=== PATIENT | female | born 1985 | race Caucasian/White ===

== ENCOUNTER → 2016-10-05 | Outpatient (CLI) | payer MEDICAID ==
--- NOTE | 2016-10-05 10:40 | US ---
October 05, [address] Gomez, Thank you for requesting consultation and a follow up ultrasound for your patient, Mrs. Shalini castillo. As you know, Nevaeh is a 31 year old G 3, P 1011 . Her due date is 12/19/16 by LMP and 12 week ultrasound. Her current gestational age based on this dating is is 29 weeks 2 days. She is seen to day for a follow up of placental location, pyelectasis and growth. Her son had cleft lip/palate. We have not seen any evidence for orofacial clefting in this . She had a reassuring [employer] screen. ULTRASOUND Number of fetuses: 1 Placental location: Posterior and low lying at 1.6 cm from the internal cervical os. Color and spec tral Doppler do not reveal any overlying vessels. presentation: Breech Heart Rate: 147 bpm Cervix: 3.4-3.7 cm viewed transvaginally. There is no shortening or evidence of insufficiency Maximum vertical pocket: 3.4 cm Measurements: Biparietal diameter: 70 mm 28 weeks, 1 days Head circumference: 270 mm 29 weeks, 4 days Abdominal circumference: 272 mm 31 weeks, 2 days Femur length: 57 mm 29 weeks, 5 days Humerus length: 53 mm 31 weeks, 0 days Transcerebellar diameter: 35 mm 29 weeks, 3 days Average age by ultrasound: 29 weeks, 5 days Estimated weight: 1553 gm weight percentile: 75 % ANATOMY anatomy was previously assessed. Today the following structures were visualized and appeared n ormal: Bladder, stomach, bilateral kidneys, four-chamber view of the heart, lateral ventricle, cavum septum pellucidum, and limited views of the bony spine.. The left kidney is prominent at the renal pelvis, but by measurement has normalized for this gestatio nal age at 6.7 mm (cut off 7mm) IMPRESSION: 1. Intrauterine at 29 weeks, 2 days; JANIE of 12/19/16. 2. growth is appropriate size for dates. 3. anatomy was previously assessed and today's ultrasound continues to provide reassurance of normal appearing anatomy. 4. Normal amniotic fluid volume 5. Low lying posterior placenta with the lowest edge 1.6 cm from the internal cervical os. RECOMMENDATIONS: I was pleased to review today's ultrasound with your patient. I reassured her that growth is normal at the 75 %ile for this gestational age. The amniotic fluid volume is normal. We performed a review of the anatomy which was limited by gestational age and position, but no overt abnormali ties were noted. Further, the previously noted pyelectasis has resolved for this gestational age. T he left renal pelvis is prominent, but otherwise normal in dimension. Transvaginal imaging was performed to better evaluate the cervix and the placenta. The placenta has now moved and is 1.6 cm from the os. I explained to Nevaeh that at a minimum 1 cm is needed and that 7 5% of women will deliver safely before a concern for bleeding. Given that she is located in a [facility], I suspect that 2 cm would serve her better from a safety aspect and I fully anticipate this t o occur as the progresses. I have asked Nevaeh to reschedule at 34-36 weeks for a final evaluation of the placenta, growth and a r eevaluation of the left kidney. Thank you for allowing us the opportunity to evaluate your patient. Should you have any further ques tions or concerns please do not hesitate to contact me. Approximately 15 minutes were spent with the patient and 10 minutes were spent in face to face consu ltation. Maryana Hylton MD Primary Teaching Assistant Maternal Medicine Diagnosis Department of Obstetrics & Gynecology [facility]
--- NOTE | 2016-10-05 17:50 | US ---
OB SONOGRAM History: JANIE December 19, 2016, 29 weeks 2 days, follow-up growth, different gestation with cleft lip/pal ate Technique: Transabdominal and transvaginal scanning. Transvaginal scanning is performed to better rashid luate the cervix and to evaluate the low lying placenta Comparison: August 03, 2016 Findings: The fetus is in ryland breech presentation. The cervix is obscured by the buttocks usi ng transabdominal technique. Using transvaginal technique, the placenta is posterior and low-lying, a pproximately 1.6 cm from the internal os. The cervix is closed measuring 3.4-3.7 cm using the transva ginal probe. There is no funneling of the internal os. heart is 4 chambered and has a rate = 147 bpm. Maximum amniotic fluid pocket = 3.4 cm. Fluid is identified in the stomach and urinary bladder. The renal region looks normal, incl uding a prominent left renal pelvis measuring 6.7 mm, which compares to prior 4 mm. (Normal for this age <7 mm). There is no ascites. The visualized intracranial contents and spine looks nor mal. BPD = 70 mm = 28 weeks 1 day Head circumference = 270 mm = 29 weeks 4 days Abdominal circumference = 272 mm = 31 weeks 2 days Femur length = 57 mm = 29 weeks 5 days Humeral length = 53 mm = 31 weeks 0 days Cerebellar width = 35 mm = 29 weeks 3 days Cisterna magna = 4.4 mm Estimated weight = 1553 +/- 227g = 75 percentile Average gestational age by ultrasound = 29 weeks 5 days JANIE by ultrasound = December 16, 2016 Impression: 1. Size consistent with dates. 2. Low-lying posterior placenta, 1.6 cm from the internal os. This report should be read in conjunction with a consultation by Dr. Maryana Hylton.
== END ==
LOC: FIMAGING 09:37
PROVIDERS: ATTEND Obstetrics & Gynecology
DX: O09.893 Supervision of other high risk pregnancies, third trimester (principal)

== ENCOUNTER → 2016-11-16 | Outpatient (CLI) | payer MEDICAID | LOC: FIMAGING 10:06 | PROVIDERS: ATTEND Obstetrics & Gynecology | DX: Z34.83 Encounter for supervision of other normal pregnancy, third trimester (principal); Z3A.35 35 weeks gestation of pregnancy ==